=== PATIENT | male | born 1970 | race Caucasian/White ===

== ENCOUNTER 2020-10-22 12:13 | Emergency (ER) | payer OTHER ==
[~2020-10-22] VITALS: Ht 175.3 cm; Wt 78.2 kg
--- NOTE | 2020-10-22 12:55 | NUR ---
PT HERE FOR CP AND SOB YESTERDAY, STATES IT HAS NOW RESOLVED. SEEN AT TODAY AND ADVISED TO COME TO ED.
--- NOTE | 2020-10-22 12:57 | NUR ---
REPORT GIVEN TO RUTHIE MCCLENDON.
[2020-10-22 13:46] LABS: BASOPHILS % (AUTO) 1 % (0-1); EOSINOPHILS % (AUTO) 2 % (1-7); LYMPHOCYTES % (AUTO) 32 % (22-44); MEAN CORPUSCULAR HEMOGLOBIN 31.3 pg (27.5-34.5); MEAN CORPUSCULAR HGB CONC 33.7 g/dL (33.2-36.2); MEAN PLATELET VOLUME 8.6 fL (7.4-10.4); MONOCYTES % (AUTO) 10 % (2-9); NEUTROPHILS % (AUTO) 56 % (42-75); PLATELET COUNT 156 x10^3/uL (130-400); RED BLOOD COUNT 4.58 x10^6/uL (4.38-5.82); RED CELL DISTRIBUTION WIDTH 13.1 % (9.4-14.8)
[2020-10-22 13:50] LABS: ALANINE AMINOTRANSFERASE 32 U/L (12-78); ALBUMIN 3.9 g/dL (3.4-5.0); ANION GAP 3 mmol/L (5-15); CALCIUM 8.8 mg/dL (8.5-10.1); CHLORIDE 108 mmol/L (98-107)
[2020-10-22 13:56] LABS: ALKALINE PHOSPHATASE 65 U/L (45-117); BILIRUBIN,TOTAL 0.6 mg/dL (0.2-1.0); TOTAL PROTEIN 7.3 g/dL (6.4-8.2); TROPONIN I < 0.015 ng/mL (0.000-0.045)
[2020-10-22 14:10] VITALS: BP 109/72
--- NOTE | 2020-10-22 14:10 | NUR ---
CURRENTLY AWAITING RECHECK. PT SITTING UP IN BED, RESPIRATIONS EVEN AND UNLABORED ON RA. SIDE RAIL UP, CALL LIGHT IN REACH.
== END 2020-10-22 14:59 | disposition home or self-care (01) ==
LOC: ED 14:50
DX: R07.89 Other chest pain (principal); I44.1 Atrioventricular block, second degree; R94.31 Abnormal electrocardiogram [ECG] [EKG]
CPT/HCPCS: 36415; 71045; 80053; 84484; 85025; 93005; 99285